=== PATIENT | male | born 1970 | race Caucasian/White ===

== ENCOUNTER → 2016-05-13 | Outpatient (CLI) | payer BC ==
--- NOTE | 2016-05-14 01:46 | REP ---
Clinical: Acute on chronic pain. Technique: AP, lateral, bilateral oblique views right foot . Findings: The osseous structures and joint spaces are intact and normal. There is no evidence for acute fracture or dislocation. Surrounding soft tissues are unremarkable. No subcutaneous emphysema or radiodense foreign body. Impression: Normal examination. No acute fracture or dislocation. Signed by Pato Manzano MD 05/14/2016 01:38 A
== END ==
LOC: M RAD 11:51
PROVIDERS: ATTEND Family Medicine
DX: M79.671 Pain in right foot (principal)

== ENCOUNTER → 2016-05-31 | Outpatient (CLI) | payer BC ==
[2016-05-31 12:21] LABS: ALBUMIN 3.7 GM/DL (3.2-5.2); ALBUMIN/GLOBULIN RATIO 1.23 (1.00-1.93); ALKALINE PHOSPHATASE 88 U/L (45-117); ALT/SGPT 36 U/L (12-78); ANION GAP 8 MEQ/L (8-16); AST/SGOT 24 U/L (15-37); BILIRUBIN,TOTAL 1.6 MG/DL (0.2-1.0); BLOOD UREA NITROGEN 15 MG/DL (7-18); CALCIUM LEVEL 8.7 MG/DL (8.5-10.1); CARBON DIOXIDE LEVEL 29 MEQ/L (21-32); CHLORIDE LEVEL 105 MEQ/L (98-107); CHOLESTEROL LEVEL 170 MG/DL (<200); GLOMERULAR FILTRATION RATE > 60.0 (>60); GLUCOSE, FASTING 89 MG/DL (70-105); POTASSIUM SERUM 4.1 MEQ/L (3.5-5.1); SODIUM LEVEL 142 MEQ/L (136-145); TOTAL PROTEIN 6.7 GM/DL (6.4-8.2); TRIGLYCERIDES LEVEL 90 MG/DL (<150)
== END ==
LOC: M LAB 10:43
PROVIDERS: ATTEND Student in an Organized Health Care Education/Training Program
DX: D86.9 Sarcoidosis, unspecified (principal); E66.9 Obesity, unspecified; Z13.220 Encounter for screening for lipoid disorders

== ENCOUNTER → 2017-04-15 | Outpatient (CLI) | payer BC ==
[2017-04-15 17:20] LABS: PSA SCREENING 0.87 NG/ML (< 4.0)
[2017-04-15 18:33] LABS: APPEARANCE, URINE CLEAR (CLEAR); BACTERIA, URINE AUTO NEGATIVE (NEGATIVE); BILIRUBIN, URINE AUTO NEGATIVE (NEGATIVE); BLOOD, URINE BLOOD NEGATIVE (NEGATIVE); COLOR, URINE YELLOW (YELLOW); GLUCOSE, URINE (UA) AUTO NEGATIVE (NEGATIVE); KETONE, URINE AUTO NEGATIVE (NEGATIVE); LEUKOCYTE ESTERASE, URINE AUTO NEGATIVE (NEGATIVE); MUCUS, URINE SMALL (NEGATIVE); NITRITE, URINE AUTO NEGATIVE (NEGATIVE); PROTEIN, URINE AUTO NEGATIVE (NEGATIVE); RBC, URINE AUTO 0 /HPF (0-3); SPECIFIC GRAVITY URINE AUTO 1.021 (1.002-1.035); SQUAMOUS EPITHELIAL CELL UR AU 0 /HPF (0-6); UROBILINOGEN, URINE AUTO 0.2 mg/dL (0.0-2.0); WBC, URINE AUTO 1 /HPF (0-3)
== END ==
LOC: M LAB 15:36
DX: N40.1 Benign prostatic hyperplasia with lower urinary tract symptoms (principal); Z12.5 Encounter for screening for malignant neoplasm of prostate
CPT/HCPCS: G0103

== ENCOUNTER → 2018-01-08 | Outpatient (REF) | payer BC ==
[2018-01-08 18:13] LABS: BASO % 0.8 % (0.0-1.0); EOS # 0.2 10^3/uL (0.0-0.50); EOS % 4.3 % (0.0-3.0); HEMATOCRIT 47.4 % (42.0-52.0); HEMOGLOBIN 14.7 g/dl (13.5-17.5); IMMATURE GRANULOCYTE % 0.4 % (0-3.0); LYMPH # 1.5 10^3/uL (1.5-4.5); LYMPH % 28.1 % (24.0-44.0); MEAN CORPUSCULAR HEMOGLOBIN 27.2 pg (27.0-33.0); MEAN CORPUSCULAR VOLUME 87.6 fl (80.0-96.0); MONO # 0.4 10^3/uL (0.0-0.8); MONO % 7.7 % (0.0-5.0); NEUTROPHILS # 3.1 10^3/uL (1.8-7.7); NEUTROPHILS % 58.7 % (36.0-66.0); PLATELET COUNT, AUTOMATED 189 10^3/uL (150-450); RED BLOOD COUNT 5.41 10^6/uL (4.30-6.10); RED CELL DISTRIBUTION WIDTH 13.2 % (11.5-14.5); WHITE BLOOD COUNT 5.3 10^3/uL (4.0-10.0)
[2018-01-08 18:33] LABS: ALBUMIN 4.1 GM/DL (3.2-5.2); ALBUMIN/GLOBULIN RATIO 1.28 (1.00-1.93); ALKALINE PHOSPHATASE 85 U/L (45-117); ALT/SGPT 29 U/L (12-78); ANION GAP 7 MEQ/L (8-16); AST/SGOT 19 U/L (7-37); BILIRUBIN,TOTAL 1.4 MG/DL (0.2-1.0); BLOOD UREA NITROGEN 9 MG/DL (7-18); CALCIUM LEVEL 9.1 MG/DL (8.5-10.1); CARBON DIOXIDE LEVEL 30 MEQ/L (21-32); CHLORIDE LEVEL 105 MEQ/L (98-107); CREATININE FOR GFR 0.99 MG/DL (0.70-1.30); FREE T4 1.26 NG/DL (0.76-1.46); GLOMERULAR FILTRATION RATE > 60.0 (>60); GLUCOSE, FASTING 80 MG/DL (70-100); POTASSIUM SERUM 4.3 MEQ/L (3.5-5.1); SODIUM LEVEL 142 MEQ/L (136-145); TOTAL PROTEIN 7.3 GM/DL (6.4-8.2)
[2018-01-08 18:52] LABS: ESTIMATED AVERAGE GLUCOSE 97 MG/DL (60-110)
== END ==
LOC: M SFHCPLAZ 15:56
DX: E66.9 Obesity, unspecified (principal); Z12.5 Encounter for screening for malignant neoplasm of prostate; Z12.11 Encounter for screening for malignant neoplasm of colon
CPT/HCPCS: 84443

== ENCOUNTER → 2018-08-11 | Outpatient (REF) | payer BC ==
[2018-08-11 13:42] LABS: CHOLESTEROL RISK RATIO 3.652 (<5)
== END ==
LOC: M SFHCPLAZ 09:33
PROVIDERS: ATTEND Physician Assistant Medical
DX: Z12.5 Encounter for screening for malignant neoplasm of prostate (principal); Z13.220 Encounter for screening for lipoid disorders
CPT/HCPCS: 36415; 80061; G0103

== ENCOUNTER → 2018-10-14 | Outpatient (REF) | payer BC | LOC: M SFHCPLAZ 11:52 | PROVIDERS: ATTEND Physician Assistant Medical | DX: L82.1 Other seborrheic keratosis (principal) ==

== ENCOUNTER 2019-10-17 15:28 | Emergency (ER) | payer BC ==
[~2019-10-17] VITALS: Ht 180.3 cm; Wt 135.9 kg
[2019-10-17 15:37] VITALS: BP 143/88
[2019-10-17] MEDS ORDERED: BOOSTRIX/ADACEL VACCINE (DIPHTH/PERTUSS/ACELL/TETANUS) 0.5ML SYR IM ONE (16:00)
== END 2019-10-17 16:18 | disposition home or self-care (01) ==
LOC: M ED 15:28 → EDBD 15:28 → M ED 16:18
DX: S00.01XA Abrasion of scalp, initial encounter (principal); W01.198A Fall on same level from slipping, tripping and stumbling with subsequent striking against other object, initial encounter; Y92.9 Unspecified place or not applicable; Y93.E5 Activity, floor mopping and cleaning; Y99.0 Civilian activity done for income or pay

== ENCOUNTER → 2019-10-18 | Outpatient (REF) | payer BC ==
[2019-10-18 11:25] LABS: BASO % 0.7 % (0.0-1.0); EOS # 0.2 10^3/uL (0.0-0.5); EOS % 4.6 % (0.0-3.0); HEMATOCRIT 46.6 % (42.0-52.0); HEMOGLOBIN 14.3 g/dl (13.5-17.5); LYMPH % 23.5 % (24.0-44.0); MEAN CORPUSCULAR HEMOGLOBIN 26.8 pg (27.0-33.0); MEAN CORPUSCULAR HGB CONC 30.7 g/dl (32.0-36.5); MEAN CORPUSCULAR VOLUME 87.4 fl (80.0-96.0); MONO # 0.4 10^3/uL (0.0-0.8); MONO % 9.5 % (0.0-5.0); NEUTROPHILS # 2.5 10^3/uL (1.5-8.5); NEUTROPHILS % 61.5 % (36.0-66.0); PLATELET COUNT, AUTOMATED 156 10^3/uL (150-450); RED BLOOD COUNT 5.33 10^6/uL (4.30-6.10); WHITE BLOOD COUNT 4.1 10^3/uL (4.0-10.0)
[2019-10-18 11:40] LABS: ALBUMIN 3.6 GM/DL (3.2-5.2); ALT/SGPT 33 U/L (12-78); BILIRUBIN,TOTAL 1.2 MG/DL (0.2-1.0); BLOOD UREA NITROGEN 15 MG/DL (7-18); CALCIUM LEVEL 8.6 MG/DL (8.5-10.1); CARBON DIOXIDE LEVEL 29 MEQ/L (21-32); CHLORIDE LEVEL 109 MEQ/L (98-107); CREATININE FOR GFR 1.03 MG/DL (0.70-1.30); FREE T4 1.23 NG/DL (0.76-1.46); GLOMERULAR FILTRATION RATE > 60.0 (>56); GLUCOSE, FASTING 87 MG/DL (70-100); LUTEINIZING HORMONE 5.4 mIU/mL (1.5-9.3); POTASSIUM SERUM 4.1 MEQ/L (3.5-5.1); PROLACTIN 6.8 NG/ML (2.1-17.7); SODIUM LEVEL 143 MEQ/L (136-145); THYROID STIMULATING HORMONE 0.535 uIU/ML (0.358-3.740); TOTAL PROTEIN 6.5 GM/DL (6.4-8.2); VITAMIN B12 LEVEL 587 PG/ML (247-911)
[2019-10-18 11:43] LABS: HEMOGLOBIN A1c 5.2 %
== END ==
LOC: M SFHCPLAZ 09:16
PROVIDERS: ATTEND Physician Assistant Medical
DX: R53.83 Other fatigue (principal); Z68.41 Body mass index [BMI] 40.0-44.9, adult

== ENCOUNTER 2019-11-13 23:47 | Emergency (ER) | payer BC ==
[2019-11-14] MEDS ORDERED: NAPROXEN 250 MG TAB As Ordered ONE (06:15)
[2019-11-14] MEDS ORDERED: NAPROXEN 250 MG TAB ONE (06:15)
== END 2019-11-14 06:20 | disposition home or self-care (01) ==
LOC: M ED 23:47
DX: M25.561 Pain in right knee (principal); M25.572 Pain in left ankle and joints of left foot

== ENCOUNTER → 2020-02-08 | Outpatient (REF) | payer BC ==
[2020-02-09 16:08] LABS: TESTOSTERONE FREE (DIRECT) 7.9 pg/mL (7.2-24.0)
== END ==
LOC: M SFHCPLAZ 10:40
PROVIDERS: ATTEND Physician Assistant Medical
DX: N52.9 Male erectile dysfunction, unspecified (principal)

== ENCOUNTER → 2020-02-16 | Outpatient (REF) | payer BC | LOC: M SFHCPLAZ 10:56 | PROVIDERS: ATTEND Physician Assistant Medical | DX: N40.1 Benign prostatic hyperplasia with lower urinary tract symptoms (principal) ==

== ENCOUNTER → 2020-02-16 | Outpatient (REF) | payer BC | LOC: M SFHCPLAZ 12:33 | PROVIDERS: ATTEND Physician Assistant Medical | DX: Z53.9 Procedure and treatment not carried out, unspecified reason (principal); N40.1 Benign prostatic hyperplasia with lower urinary tract symptoms ==

== ENCOUNTER → 2020-02-22 | Outpatient (REF) | payer BC ==
[2020-02-23 18:12] LABS: TESTOSTERONE FREE (DIRECT) 6.7 pg/mL (7.2-24.0)
== END ==
LOC: M SFHCPLAZ 08:17
PROVIDERS: ATTEND Physician Assistant Medical
DX: E29.1 Testicular hypofunction (principal)

== ENCOUNTER → 2020-07-11 | Outpatient (CLI) | payer SELFPAY | LOC: M LABSMTC 10:16 | PROVIDERS: ATTEND Pediatrics | DX: Z20.822 Contact with and (suspected) exposure to COVID-19 (principal) ==

== ENCOUNTER → 2020-09-25 | Outpatient (REF) | payer BC ==
[2020-09-25 14:11] LABS: CHOLESTEROL RISK RATIO 3.132 (<5)
[2020-09-26 19:07] LABS: TESTOSTERONE FREE (DIRECT) 12.5 pg/mL (7.2-24.0)
== END ==
LOC: M PLALAB 10:58
PROVIDERS: ATTEND Physician Assistant Medical
DX: Z13.220 Encounter for screening for lipoid disorders (principal); E29.1 Testicular hypofunction

== ENCOUNTER → 2020-12-11 | Outpatient (CLI) | payer BC ==
--- NOTE | 2020-12-13 04:28 | REP ---
INDICATION: PAIN IN LEFT ELBOW COMPARISON: None. TECHNIQUE: AP, lateral, bilateral oblique views of the left elbow. FINDINGS: No acute fracture or dislocation is appreciated. Joint spaces and surrounding soft tissues appear normal. Lateral view demonstrates normal positioning to the anterior and posterior fat pads without evidence for effusion/hemarthrosis. No subcutaneous emphysema or foreign body identified. IMPRESSION: Normal age-appropriate elbow radiographs. <Electronically signed by Pato Manzano > 12/13/20 0424
== END ==
LOC: M PLAIMG 12:18
PROVIDERS: ATTEND Physician Assistant
DX: M25.522 Pain in left elbow (principal)

== ENCOUNTER 2021-01-31 11:59 | Emergency (ER) | payer BC ==
[~2021-01-31] VITALS: Ht 180.3 cm; Wt 138.6 kg
--- OUTSIDE RECORDS SUMMARY | 2021-01-31 12:04 | CCD ---
Author Author [facility] Organization [facility] Address Unknown Phone Unavailable Care Team Providers Care Utility Repairer Name Role Phone Henny Maldonado Unavailable PROBLEMS Type Condition ICD9-CM Code [id number] Code Onset Dates Condition S tatus W/U Status Risk SNOMED Code Notes Problem Obesity, unspecified obesity severity, unspecified obe sity type E66.9 Active confirmed 343175155 Problem Sarcoidosis D86.9 Active confirmed 97337062 Problem Other obesity due to excess calories E66.09 Act gm confirmed 73164048439825 Problem Erectile dysfunction, unspecified erectile dysfunction typ e N52.9 Active confirmed 137929736 Problem DDD (degenerative disc disease), lumbar M51.36 Active confirmed 26150607 Problem Morbid (severe) obesity due to excess calories E66 .01 Active confirmed 53076420795714 Problem Colon cancer screening Z12.11 Active confirmed 048389463 Problem Seborrheic keratosis L82.1 Active confirmed 079954724 Problem Other male erectile dysfunction N52.8 Active confi rmed 164806229 Problem Hypogonadism in male E29.1 Active confirmed 89320439 Problem Enlarged prostate with lower urinary tract symptoms N40.1 Active confirmed 99251038374112 Problem Prostate cancer screening Z12.5 Active confirmed 225903842 Problem Body mass index (BMI) of 40.0-44.9 in adult Z68.41 Active confirmed 704458492 Problem Encounter for immunization Z23 Active confirmed 308666253 Problem Lipid screening Z13.220 Active confirmed 305 781437 ALLERGIES Allergen (clinical drug ingredient) Drug/Non Drug Allergy do cumented on EMR Reaction Allergy Type Onset Date Status Seasonal allergies Unknown Non Drug Allergy Active ENCOUNTERS from 1969 to 2020-12-13 Encounter Location Date Provider Diagnosis [facility] [address] [facility] [phone] [place] [address] Nov, Henny Maldonado Acute bilateral low back gina n without sciatica M54.5 ; DDD (degenerative disc disease), lumbar M51.36 and Left elbow pain M25.522 IMMUNIZATIONS Vaccine Route Administration Date Status Influenza 18 yrs & older Flublok IM Intramuscular Feb 15, 2020 Administered Pneumococcal Adult 0.5mL Pneumovax 23 IM Intramuscular Feb 19 018 Administered TDAP 0.5mL (Boostrix) IM Intramuscular Jan 16, 2017 Administe red TDAP 0.5mL (Boostrix) Unknown Jan 16, 2017 Administer ed Influenza 6mo & up Fluzone IM Intramuscular Feb 19, 2018 Admi nistered Influenza 6mo & up Fluzone IM Intramuscular Jan 16, 2017 Admi nistered Influenza 6mo & up Fluzone IM Intramuscular Feb 29, 2016 Admi nistered SOCIAL HISTORY Tobacco Use: Social History Observation Description Date Details (start date - stop date) Former Smoker Sex Assigned At : Social History Observation Description Sex Assigned At Unknown Education: Question Answer Notes Level of Education: Professional Schools/Masters/PhD Audit Question Answer Notes Total Score: 1 Interpretation: Alcohol Education Language: Question Answer Notes Languages spoken: Bulgarian Sexual Hx: Question Answer Notes Had sex in the last 12 months (vaginal, oral, or anal)? No Have you ever had an STD? Yes Other? Yes Drug and Alcohol Question Answer Notes Total Score: 0 Interpretation: No problems reported Alcohol Screening: Question Answer Notes Did you have a drink containing alcohol in the past year? No Points 0 Interpretation Negative BMI Care Goal Follow-Up Question Answer Notes Above Normal BMI Follow-Up Lifestyle education regarding t Tobacco Use: Question Answer Notes Are you a: former smoker How long has it been since you last smoked? 1-5 years REASON FOR REFERRAL from 1969 to 2020-12-13 Reason chronic low back pain; hx DD D|This is private insurance, NOT NF Diagnosis 1 Acute bilateral low back gina n without sciatica (M54.5) Referral Organization [facility] Referring Provider First Name Henny Referring Provider Last Name Joel Referring Provider Specialty Family Medicine Ref[facility] Provider [facility] Referred Provider Specialty Orthopedic Surgery Referral Priority Routine General Notes Lashay Daniel 12/11/2020 12:02:31 PM > referral faxed VITAL SIGNS Weight 300 lbs Nov, Weight-kg 136.08 kg Nov, Height 71.5 in Nov, BMI 41.25 kg/m2 Nov, Heart Rate 87 /min Nov, Respiratory Rate 18 /min Nov, Temperature 97.1 degrees Fahrenheit Nov, Oximetry 98% Nov, Blood pressure systolic 120 mm Hg Nov, Blood pressure diastolic 80 mm Hg Nov, MEDICATIONS Medication SIG (Take, Route, Frequency, Duration) Notes Start Da te End Date Status Meloxicam 7.5 MG 1 tablet Orally bid for 30 day(s) Not-Taking tiZANidine HCl 2 MG 1 tablet as needed Orally Three times a day for 30 day(s) Active Testosterone 12.5 MG/ACT (1%) 4 pumps to skin in the m orning to shoulder, upper arms or abdomen Transdermal Once a day for 30 Days Nov, Active Gabapentin 100 MG 1 capsule Orally Three times a day for 30 day(s) Active PROCEDURES No Information RESULTS No Results REASON FOR VISIT No Information MEDICAL (GENERAL) HISTORY Type Description Date Medical History Degenerative Disc Disease, Lumbar Medical History 10-year ASCVD risk: 2.1% (calculated on 01/16/17) Medical History Prostate hypertrophy Medical History ED Medical History Sarcoidosis-steroid responsi ve last flareup & steroid use in [address], [address] Cates 08/2012, pfts thenFEV1 2.61,63%, FEV1/FVC 973% Surgical History cholecystectomy 2004 Surgical History Lymph node biopsies 2004 Surgical History Lung biopsis for sarcoidosis 2004 Surgical History wisdom teeth extracted age 16 Surgical History S/p Tonsillectomy Hospitalization History hospitalized for surgeries, Sarcoido sis Goals Section No Information Health Concerns No Information MEDICAL EQUIPMENT No Information MENTAL STATUS No Information FUNCTIONAL STATUS No Information ASSESSMENTS Encounter Date Diagnosis Assessment Notes Treatment Notes Treatm ent Clinical Notes Nov, Acute bilateral low back pain without sciatica ( ICD-10 - M54.5) Will refill Tizanidine and Gabapentin. Warned pt about drowsiness with Tizanidine. Avoid driving, operating heavy machinery or drinking alcohol while on this medication. Will not refill Meloxicam, as pt state that this was not helpful in the past. May take Ibuprofen OTC for inflammation. Will refer to SOS as discussed. Pt to avoid heavy lifting, pushing or pulling. Pt agrees with plan Nov, DDD (degenerative disc disease), lumbar (ICD-10 - M51.36) Nov, Left elbow pain (ICD-10 - M25.522) Will obtain xrays of the left elbow and will call pt with results. Pt agrees with plan Nov, Other Total time bogdan ng for the patient on the day of the encounter was 20 min PLAN OF TREATMENT Medication Medication Name Sig Start Date Stop Date Gabapentin 100 MG 1 capsule Orally Three times a day for 30 day( s) tiZANidine HCl 2 MG 1 tablet as needed Orally Three times a day for 30 day(s) Treatment Notes Assessment Notes Clinical Notes Acute bilateral low back pain without sciatica Will refill Tizanidine and Gabapentin. Warned pt about drowsiness with Tizanidine. Avoid driving, operating heavy machinery or drinking alcohol while on this medication. Will not refill Meloxicam, as pt state that this was not helpful in the past. May take Ibuprofen OTC for inflammation. Will refer to SOS as discussed. Pt to avoid heavy lifting, pushing or pulling. Pt agrees with plan Left elbow pain Will obtain xrays of the left elbow and will call pt with results. Pt agrees with plan Treatment Notes Test Name Order Date PLZ ELBOW COMPLETE 2020-12-11 Referrals Referral Date Details chronic low back pain; hx DD D|This is private insurance, NOT NF, [facility] Next Appt Details Provider Name:Destiny Gómez, 2021-02-07 03:15:00 PM, [address] [facility], , [place], [address], Insurance Providers Payer Name Payer Address Payer Phone Insured Name Patient Relati onship to Insured Coverage Start Date Coverage End Date MALKA BRUCE PPO [phone] [facility] Expandly [facility] [place] [address] ROSIE RODRIGUEZ self"
--- OUTSIDE RECORDS SUMMARY | 2021-01-31 12:04 | CCD ---
Author Author [facility] Organization [facility] Address Unknown Phone Unavailable Care Team Providers Care Reflesher Name Role Phone Brandi Singh Unavailable PROBLEMS Type Condition ICD9-CM Code [id number] Code Onset Dates Condition S tatus W/U Status Risk SNOMED Code Notes Problem Obesity, unspecified obesity severity, unspecified obe sity type E66.9 Active confirmed 481954761 Problem Sarcoidosis D86.9 Active confirmed 34606584 Problem Other obesity due to excess calories E66.09 Act gm confirmed 48577470654261 Problem Erectile dysfunction, unspecified erectile dysfunction typ e N52.9 Active confirmed 223792313 Problem DDD (degenerative disc disease), lumbar M51.36 Active confirmed 52736724 Problem Morbid (severe) obesity due to excess calories E66 .01 Active confirmed 72747141379249 Problem Colon cancer screening Z12.11 Active confirmed 251238098 Problem Seborrheic keratosis L82.1 Active confirmed 487738030 Problem Other male erectile dysfunction N52.8 Active confi rmed 316105006 Problem Hypogonadism in male E29.1 Active confirmed 43649989 Problem Enlarged prostate with lower urinary tract symptoms N40.1 Active confirmed 84967601890356 Problem Prostate cancer screening Z12.5 Active confirmed 688582156 Problem Body mass index (BMI) of 40.0-44.9 in adult Z68.41 Active confirmed 777275934 Problem Encounter for immunization Z23 Active confirmed 458571106 Problem Lipid screening Z13.220 Active confirmed 305 466162 ALLERGIES Allergen (clinical drug ingredient) Drug/Non Drug Allergy do cumented on EMR Reaction Allergy Type Onset Date Status Seasonal allergies Unknown Non Drug Allergy Active ENCOUNTERS from 1969 to 2020-11-09 Encounter Location Date Provider Diagnosis [facility] [address] [facility] [phone] [place] [address] Oct, Brandi Singh IMMUNIZATIONS Vaccine Route Administration Date Status Influenza [...] Education Language: Question Answer Notes Languages spoken: Kenyan Sexual Hx: Question Answer Notes Had sex [...] last smoked? 1-5 years REASON FOR REFERRAL No Information VITAL SIGNS No information MEDICATIONS Medication SIG (Take, Route, Frequency, Duration) Notes Start Da te End Date Status Testosterone 12.5 MG/ACT (1%) 4 pumps to skin in the m orning to shoulder, upper arms or abdomen Transdermal Once a day for 30 Days Feb, Active Testosterone 10 MG/ACT (2%) 1 pump to skin in the morn ing to the thighs Transdermal Once a day for 90 day(s) Feb, Active Gabapentin 100 MG 1 capsule Orally Three times a day for 30 day(s) Active Meloxicam 7.5 MG 1 tablet Orally bid for 30 day(s) Active tiZANidine HCl 2 MG 1 tablet as needed Orally Three times a day for 30 day(s) Active PROCEDURES No Information RESULTS No Results REASON FOR VISIT will get new provider MEDICAL (GENERAL) HISTORY Type Description Date Medical [...] No Information FUNCTIONAL STATUS No Information ASSESSMENTS No Information PLAN OF TREATMENT Medication Medication Name Sig Start Date Stop Date Testosterone 12.5 MG/ACT (1%) 4 pumps to skin in the m orning to shoulder, upper arms or abdomen Transdermal Once a day for 30 Days Feb, Meloxicam 7.5 MG 1 tablet Orally bid for 30 day(s) tiZANidine HCl 2 MG 1 tablet as needed Orally Three times a day for 30 day(s) Gabapentin 100 MG 1 capsule Orally Three times a day for 30 day( s) Testosterone 10 MG/ACT (2%) 1 pump to skin in the morn ing to the thighs Transdermal Once a day for 90 day(s) Feb, Next Appt Details Provider Name:Destiny Gómez, 2021-02-07 03:15:00 PM, [address] [place] [address], , [place], [place], [facility], Insurance Providers Payer Name Payer Address Payer Phone Insured Name Patient Relati onship to Insured Coverage Start Date Coverage End Date SHIRLEY BRUCE [facility] [address] [facility] [address] Apolonia Rodriguez
--- OUTSIDE RECORDS SUMMARY | 2021-01-31 12:04 | CCD ---
Author Author [facility] Organization [facility] Address Unknown Phone Unavailable Care Team Providers Care Structural Worker Name Role Phone Brandi Singh Unavailable PROBLEMS Type Condition ICD9-CM Code [id number] Code Onset Dates Condition S tatus W/U Status Risk SNOMED Code Notes Problem Obesity, unspecified obesity severity, unspecified obe sity type E66.9 Active confirmed 868128159 Problem Sarcoidosis D86.9 Active confirmed 54819385 Problem Other obesity due to excess calories E66.09 Act gm confirmed 70193857545886 Problem Erectile dysfunction, unspecified erectile dysfunction typ e N52.9 Active confirmed 263301876 Problem DDD (degenerative disc disease), lumbar M51.36 Active confirmed 04258488 Problem Morbid (severe) obesity due to excess calories E66 .01 Active confirmed 61077007285586 Problem Colon cancer screening Z12.11 Active confirmed 472030246 Problem Seborrheic keratosis L82.1 Active confirmed 360412190 Problem Other male erectile dysfunction N52.8 Active confi rmed 991888266 Problem Hypogonadism in male E29.1 Active confirmed 74964574 Problem Enlarged prostate with lower urinary tract symptoms N40.1 Active confirmed 56617314496346 Problem Prostate cancer screening Z12.5 Active confirmed 148776093 Problem Body mass index (BMI) of 40.0-44.9 in adult Z68.41 Active confirmed 073270090 Problem Encounter for immunization Z23 Active confirmed 257289656 Problem Lipid screening Z13.220 Active confirmed 305 695453 ALLERGIES Allergen (clinical drug ingredient) Drug/Non Drug Allergy do cumented on EMR Reaction Allergy Type Onset Date Status Seasonal allergies Unknown Non Drug Allergy Active ENCOUNTERS from 1969 to 2020-11-16 Encounter Location Date Provider Diagnosis [facility] [address] [facility] [phone] [place] [address] Nov, Brandi Singh Hypogonadism in male E29.1 IMMUNIZATIONS Vaccine Route Administration Date Status Influenza [...] Education Language: Question Answer Notes Languages spoken: Polish Sexual Hx: Question Answer Notes Had sex [...] Start Da te End Date Status Testosterone 10 MG/ACT (2%) 1 pump to skin in the morn ing to the thighs Transdermal Once a day for 30 days Nov, Active tiZANidine HCl 2 MG 1 tablet as needed Orally Three times a day for 30 day(s) Active Meloxicam 7.5 MG 1 tablet Orally bid for 30 day(s) Active Testosterone 12.5 MG/ACT (1%) 4 pumps to skin in the m orning to shoulder, upper arms or abdomen Transdermal Once a day for 30 Days Nov, Active Gabapentin 100 MG 1 capsule Orally Three times a day for 30 day(s) Active PROCEDURES No Information RESULTS No Results REASON FOR VISIT Testosterone 12.5 MG/ACT (1%) Gel MEDICAL (GENERAL) HISTORY Type Description Date Medical [...] Treatment Notes Treatm ent Clinical Notes Nov, Hypogonadism in male (ICD-10 - E29.1) PLAN OF TREATMENT Medication Medication Name Sig Start Date Stop Date Testosterone 10 MG/ACT (2%) 1 pump to skin in the morn ing to the thighs Transdermal Once a day for 30 days Nov, Testosterone 12.5 MG/ACT (1%) 4 pumps to skin in the m orning to shoulder, upper arms or abdomen Transdermal Once a day for 30 Days Nov, Gabapentin 100 MG 1 capsule Orally Three times a day for 30 day( s) Meloxicam 7.5 MG 1 tablet Orally bid for 30 day(s) tiZANidine HCl 2 MG 1 tablet as needed Orally Three times a day for 30 day(s) Next Appt Details Provider Name:Destiny Gómez, 2021-02-07 03:15:00 PM, [address] [place] [address], , [place], [address], Insurance Providers Payer Name Payer Address Payer Phone Insured Name Patient Relati onship to Insured Coverage Start Date Coverage End Date [facility] [place] [address] [address] [place] [address] Apolonia Rodriguez
--- OUTSIDE RECORDS SUMMARY | 2021-01-31 12:04 | CCD ---
Author Author [facility] Organization [facility] Address Unknown Phone Unavailable Care Team Providers Care Journeyman Level Acoustic Analyst Name Role Phone Brandi Singh Unavailable PROBLEMS Type Condition ICD9-CM Code [id number] Code Onset Dates Condition S tatus W/U Status Risk SNOMED Code Notes Problem Obesity, unspecified obesity severity, unspecified obe sity type E66.9 Active confirmed 020435971 Problem Sarcoidosis D86.9 Active confirmed 65673837 Problem Other obesity due to excess calories E66.09 Act gm confirmed 82168987070097 Problem Erectile dysfunction, unspecified erectile dysfunction typ e N52.9 Active confirmed 360659651 Problem DDD (degenerative disc disease), lumbar M51.36 Active confirmed 69577710 Problem Morbid (severe) obesity due to excess calories E66 .01 Active confirmed 59381236142156 Problem Colon cancer screening Z12.11 Active confirmed 315108677 Problem Seborrheic keratosis L82.1 Active confirmed 447006581 Problem Other male erectile dysfunction N52.8 Active confi rmed 956008726 Problem Hypogonadism in male E29.1 Active confirmed 49757378 Problem Enlarged prostate with lower urinary tract symptoms N40.1 Active confirmed 60961582146084 Problem Prostate cancer screening Z12.5 Active confirmed 979216024 Problem Body mass index (BMI) of 40.0-44.9 in adult Z68.41 Active confirmed 052936160 Problem Encounter for immunization Z23 Active confirmed 928376235 Problem Lipid screening Z13.220 Active confirmed 305 129313 ALLERGIES Allergen (clinical drug ingredient) Drug/Non Drug Allergy do cumented on EMR Reaction Allergy Type Onset Date Status Seasonal allergies Unknown Non Drug Allergy Active ENCOUNTERS from 1970 to 2020-11-17 Encounter Location Date Provider Diagnosis [facility] [address] [facility] [phone] [place] [address] Nov, Brandi Singh Hypogonadism in male E29.1 [...] Education Language: Question Answer Notes Languages spoken: Mosotho Sexual Hx: Question Answer Notes Had sex [...] Notes Start Da te End Date Status Gabapentin 100 MG 1 capsule Orally Three times a day for 30 day(s) Active tiZANidine HCl 2 MG 1 tablet as needed Orally Three times a day for 30 day(s) Active Meloxicam 7.5 MG 1 tablet Orally bid for 30 day(s) Active Testosterone 12.5 MG/ACT (1%) 4 pumps to skin in the m orning to shoulder, upper arms or abdomen Transdermal Once a day for 30 Days Nov, Active PROCEDURES No Information RESULTS No Results REASON FOR VISIT script failed please resend MEDICAL (GENERAL) HISTORY Type Description Date Medical [...] 1 tablet Orally bid for 30 day(s) Testosterone 12.5 MG/ACT (1%) 4 pumps to skin in the m orning to shoulder, upper arms or abdomen Transdermal Once a day for 30 Days Nov, tiZANidine HCl 2 MG 1 tablet as needed Orally Three times a day for 30 day(s) Next Appt Details Provider Name:Destiny Gómez, 2021-02-07 03:15:00 PM, [address] [place] [address], , [place], [place], [facility], Insurance Providers Payer Name Payer Address Payer Phone Insured Name Patient Relati onship to Insured Coverage Start Date Coverage End Date SHIRLEY BRUCE [place] [address] [address] [place] [address] [phone] Apolonia Rodriguez
--- OUTSIDE RECORDS SUMMARY | 2021-01-31 12:04 | CCD ---
Author Author [facility] Organization [facility] Address Unknown Phone Unavailable Care Team Providers Care Rivet Machine Operator Name Role Phone Luma Lo Unavailable PROBLEMS Type Condition ICD9-CM Code [id number] Code Onset Dates Condition S tatus W/U Status Risk SNOMED Code Notes Problem Sarcoidosis D86.9 Active confirmed 44101432 Problem Erectile dysfunction, unspecified erectile dysfunction typ e N52.9 Active confirmed 902283355 Problem Obesity, unspecified obesity severity, unspecified obe sity type E66.9 Active confirmed 734406012 Problem Enlarged prostate with lower urinary tract symptoms N40.1 Active confirmed 09388987973532 Problem Other obesity due to excess calories E66.09 Act gm confirmed 37115484661217 Problem Morbid (severe) obesity due to excess calories E66 .01 Active confirmed 05087652716074 Problem Colon cancer screening Z12.11 Active confirmed 556788044 Problem Prostate cancer screening Z12.5 Active confirmed 929478827 Problem Hypogonadism in male E29.1 Active confirmed 72856157 Problem DDD (degenerative disc disease), lumbar M51.36 Active confirmed 33691187 Problem Condyloma acuminata A63.0 Active confirmed 237320465 Problem Other male erectile dysfunction N52.8 Active confi rmed 384923635 Problem Body mass index (BMI) of 40.0-44.9 in adult Z68.41 Active confirmed 221793612 Problem Encounter for immunization Z23 Active confirmed 033823999 Problem Lipid screening Z13.220 Active confirmed 305 560462 Problem Seborrheic keratosis L82.1 Active confirmed 121343301 ALLERGIES Allergen (clinical drug ingredient) Drug/Non Drug Allergy do cumented on EMR Reaction Allergy Type Onset Date Status Pollen Pollen Unknown Drug Allergy Active ENCOUNTERS from 1969 to 2021-01-29 Encounter Location Date Provider Diagnosis [facility] D[facility]atology [address] [phone] [place] [address] Jan, Luma Lo Inflamed skin tag L91.8 ; Sk in irritation R23.8 and Condyloma acuminata A63.0 IMMUNIZATIONS Vaccine Route Administration Date Status Influenza [...] Education Language: Question Answer Notes Languages spoken: Uzbek Sexual Hx: Question Answer Notes Had sex [...] REASON FOR REFERRAL No Information VITAL SIGNS Weight 305.8 lbs Jan, Weight-kg 138.71 kg Jan, Height 71.5 in Jan, BMI 42.05 kg/m2 Jan, Blood pressure systolic 124 mm Hg Jan, Blood pressure diastolic 72 mm Hg Jan, MEDICATIONS Medication SIG (Take, Route, Frequency, Duration) Notes Start Da te End Date Status Gabapentin 100 MG 1 capsule Orally Three times a day for 30 day(s) Not-Taking tiZANidine HCl 2 MG 1 tablet as needed Orally Three times a day for 30 day(s) Not-Taking Meloxicam 7.5 MG 1 tablet Orally bid for 30 day(s) Not-Taking Testosterone 12.5 MG/ACT (1%) 4 pumps to skin in the m orning to shoulder, upper arms or abdomen Transdermal Once a day for 30 days Nov, Active PROCEDURES from 1969 to 2021-01-29 Procedure Date Ordered Result Body Site Med: Derm 1% Lidocaine with Epinephrine Injection Intr adermally to marked areas 2021-01-25 N/A RESULTS No Results REASON FOR VISIT Skin Tags-L axilla, Right treated [facility] MEDICAL (GENERAL) HISTORY Type Description Date Medical [...] Notes Treatment Notes Treatm ent Clinical Notes Jan, Inflamed skin tag (ICD-10 - L91.8) After recieving informed consent, the patient is placed in a recumbant position. The lesions are identified on the lesion documentation form and cleansed with alcohol. The lesions are anesthitized with 1%llidocaine with epinephrine and cauterized with the hyfrecator on low setting. . The patient tolerated the procedure well and wound care instructions are given. Jan, Skin irritation (ICD-10 - R23.8) Jan, Condyloma acuminata (ICD-10 - A63.0) Cryotherapy x [1 ] number of sites. [place] protocol was followed in compliance with [facility] standards. Patient was counseled regarding the indication for treatment (precancerous state for actinic keratosis or cosmetic reasons if done for seborrheic keratoses, acrochordons or warts) as well as, the method and expected results to include compromise of the skin barrier, bleeding, scarring/white area, redness at site, lesion recurrence, and pain. Patient was consented to the risks and benefits of the procedure and gave informed consent. Lesion(s) with locations as indicated in the physical examination were treated. Lesion(s) were treated with 2 cycles of liquid nitrogen with a thaw time of at least ten seconds. Therapy was applied in a pulsed fashion to minimize collateral tissue injury. Patient was instructed to use Vaseline ointment to the area(s) until healed. Patient tolerated the procedure well and left in stable condition. Pain before and after the procedure were assessed to not be significantly different than baseline. PLAN OF TREATMENT Medication Medication Name Sig Start Date Stop Date Testosterone 12.5 MG/ACT (1%) 4 pumps to skin in the m orning to shoulder, upper arms or abdomen Transdermal Once a day for 30 days Nov, Treatment Notes Assessment Notes Clinical Notes Inflamed skin tag After recieving info rmed consent, the patient is placed in a recumbant position. The lesions are identified on the lesion documentation form and cleansed with alcohol. The lesions are anesthitized with 1%llidocaine with epinephrine and cauterized with the hyfrecator on low setting. . The patient tolerated the procedure well and wound care instructions are given. Condyloma acuminata Cryotherapy x [1 ] n umber of sites. [place] protocol was followed in compliance with [facility] standards. Patient was counseled regarding the indication for treatment (precancerous state for actinic keratosis or cosmetic reasons if done for seborrheic keratoses, acrochordons or warts) as well as, the method and expected results to include compromise of the skin barrier, bleeding, scarring/white area, redness at site, lesion recurrence, and pain. Patient was consented to the risks and benefits of the procedure and gave informed consent. Lesion(s) with locations as indicated in the physical examination were treated. Lesion(s) were treated with 2 cycles of liquid nitrogen with a thaw time of at least ten seconds. Therapy was applied in a pulsed fashion to minimize collateral tissue injury. Patient was instructed to use Vaseline ointment to the area(s) until healed. Patient tolerated the procedure well and left in stable condition. Pain before and after the procedure were assessed to not be significantly different than baseline. Next Appt Details 3 Weeks Reason:wart f/u Provider Name:Luma Ritter Aliyashantanu, 07:30:00 AM, [address] [place] [address], , [place], [place], [facility], Follow Up:3 Weekswart f/u Insurance Providers Payer Name Payer Address Payer Phone Insured Name Patient Relati onship to Insured Coverage Start Date Coverage End Date [facility] [phone] [facility] [employer] [facility] CLARISSA BECKETT [facility] [address] ROSIE RODRIGUEZ self
--- OUTSIDE RECORDS SUMMARY | 2021-01-31 12:04 | CCD ---
Author Author [facility] Organization [facility] Address Unknown Phone Unavailable Care Team Providers Care Site Safety Coordinator Name Role Phone Brandi Singh Unavailable PROBLEMS Type Condition ICD9-CM Code QKH71-SZ Code Onset Dates Condition S tatus W/U Status Risk SNOMED Code Notes Problem Obesity, unspecified obesity severity, unspecified obe sity type E66.9 Active confirmed 092963093 Problem Sarcoidosis D86.9 Active confirmed 58645821 Problem Other obesity due to excess calories E66.09 Act gm confirmed 24698030374690 Problem Erectile dysfunction, unspecified erectile dysfunction typ e N52.9 Active confirmed 666669874 Problem DDD (degenerative disc disease), lumbar M51.36 Active confirmed 63395999 Problem Morbid (severe) obesity due to excess calories E66 .01 Active confirmed 06354143532057 Problem Colon cancer screening Z12.11 Active confirmed 132484874 Problem Seborrheic keratosis L82.1 Active confirmed 665391705 Problem Other male erectile dysfunction N52.8 Active confi rmed 639059702 Problem Hypogonadism in male E29.1 Active confirmed 15996957 Problem Enlarged prostate with lower urinary tract symptoms N40.1 Active confirmed 34687848079502 Problem Prostate cancer screening Z12.5 Active confirmed 201866646 Problem Body mass index (BMI) of 40.0-44.9 in adult Z68.41 Active confirmed 390182162 Problem Encounter for immunization Z23 Active confirmed 864417914 Problem Lipid screening Z13.220 Active confirmed 305 746699 ALLERGIES Allergen (clinical drug ingredient) Drug/Non Drug Allergy do cumented on EMR Reaction Allergy Type Onset Date Status Seasonal allergies Unknown Non Drug Allergy Active ENCOUNTERS from 1969 to 2020-11-17 Encounter Location Date Provider Diagnosis [facility] [address] [facility] [phone] [place] [address] Nov, Brandi Singh Hypogonadism in male E29.1 [...] Education Language: Question Answer Notes Languages spoken: Thai Sexual Hx: Question Answer Notes Had sex [...] Information RESULTS No Results REASON FOR VISIT testosterone MEDICAL (GENERAL) HISTORY Type Description Date Medical [...] Details Provider Name:Destiny Gómez, 2021-02-07 03:15:00 PM, [address] [place] [address], , [place], [place], [facility][note 2], Insurance Providers Payer Name Payer Address Payer Phone Insured Name Patient Relati onship to Insured Coverage Start Date Coverage End Date [place] [address] [address] [place] [address] Apolonia Rodriguez
--- OUTSIDE RECORDS SUMMARY | 2021-01-31 12:04 | CCD ---
Author Author [facility] Organization [facility] Address Unknown Phone Unavailable Care Team Providers Care Amf Mechanic Name Role Phone Destiny Gómez Unavailable PROBLEMS Type Condition ICD9-CM Code THS10-OD Code Onset Dates Condition S tatus W/U Status Risk SNOMED Code Notes Problem Sarcoidosis D86.9 Active confirmed 01840981 Problem Erectile dysfunction, unspecified erectile dysfunction typ e N52.9 Active confirmed 348157024 Problem Obesity, unspecified obesity severity, unspecified obe sity type E66.9 Active confirmed 927752253 Problem Enlarged prostate with lower urinary tract symptoms N40.1 Active confirmed 74978871705688 Problem Other obesity due to excess calories E66.09 Act gm confirmed 24906327072167 Problem Morbid (severe) obesity due to excess calories E66 .01 Active confirmed 77794170077819 Problem Colon cancer screening Z12.11 Active confirmed 334315644 Problem Prostate cancer screening Z12.5 Active confirmed 303940067 Problem Hypogonadism in male E29.1 Active confirmed 77754481 Problem DDD (degenerative disc disease), lumbar M51.36 Active confirmed 12037845 Problem Condyloma acuminata A63.0 Active confirmed 587511569 Problem Other male erectile dysfunction N52.8 Active confi rmed 033696577 Problem Body mass index (BMI) of 40.0-44.9 in adult Z68.41 Active confirmed 794801475 Problem Encounter for immunization Z23 Active confirmed 645259163 Problem Lipid screening Z13.220 Active confirmed 305 026498 Problem Seborrheic keratosis L82.1 Active confirmed 130832465 ALLERGIES Allergen (clinical drug ingredient) Drug/Non Drug Allergy do cumented on EMR Reaction Allergy Type Onset Date Status Seasonal allergies Unknown Non Drug Allergy Active ENCOUNTERS from 1969 to 2021-01-04 Encounter Location Date Provider Diagnosis [facility] Dermatology [address] [facility] [phone] [place] [address] Dec, Destiny Gómez Inflamed skin tag L91.8 ; Sk in [...] Education Language: Question Answer Notes Languages spoken: Khmer Sexual Hx: Question Answer Notes Had sex [...] FOR REFERRAL No Information VITAL SIGNS Weight 302 lbs Dec, Weight-kg 136.99 kg Dec, Height 71.5 in Dec, BMI 41.53 kg/m2 Dec, Blood pressure systolic 126 mm Hg Dec, Blood pressure diastolic 74 mm Hg Dec, MEDICATIONS Medication SIG (Take, Route, Frequency, Duration) [...] a day for 30 Days Nov, Active tiZANidine HCl 2 MG 1 tablet as needed Orally Three times a day for 30 day(s) Not-Taking PROCEDURES from 1969 to 2021-01-04 Procedure Date Ordered Result Body Site Med: Derm 1% Lidocaine with Epinephrine Injection Intr adermally to marked areas 2021-01-03 N/A RESULTS No Results REASON FOR VISIT skin tag removal and wart MEDICAL (GENERAL) HISTORY Type Description Date Medical [...] Notes Treatment Notes Treatm ent Clinical Notes Dec, Inflamed skin tag (ICD-10 - L91.8) Right axilla treated today, will do left axilla next After recieving informed consent, the patient is placed in a recumbant position. The lesions are identified on the lesion documentation form and cleansed with alcohol. The lesions are anesthitized with 1%llidocaine with epinephrine and cauterized with the hyfrecator on low setting. . The patient tolerated the procedure well and wound care instructions are given. Dec, Skin irritation (ICD-10 - R23.8) Dec, Condyloma acuminata (ICD-10 - A63.0) T/C shave excision if no improvement (patient reports having had this done with a previous bar and filler assembler in other locations on penis) Cryotherapy x [1 ] number of sites. [place] protocol was followed in compliance with [facility] standards. Patient was counseled regarding [...] significantly different than baseline. PLAN OF TREATMENT Treatment Notes Assessment Notes Clinical Notes Inflamed skin tag Right axilla treated today, will do left axilla next After recieving informed consent, the patient is placed in a recumbant position. The lesions are identified on the lesion documentation form and cleansed with alcohol. The lesions are anesthitized with 1%llidocaine with epinephrine and cauterized with the hyfrecator on low setting. . The patient tolerated the procedure well and wound care instructions are given. Condyloma acuminata T/C shave excision if no imp rovement (patient reports having had this done with a previous bar and filler assembler in other locations on penis) Cryotherapy x [1 ] number of sites. [place] protocol was followed in compliance with [facility] standards. Patient was counseled regarding [...] significantly different than baseline. Next Appt Details Provider Name:Luma Lo, 10- 10:30:00 AM, [address] [place] [address], , [place], [place], [facility], Insurance Providers Payer Name Payer Address Payer Phone Insured Name Patient Relati onship to Insured Coverage Start Date Coverage End Date BCBS JOANNA BRUCE PPO [phone] [facility] Premium Store [facility] CLARISSA [place] [address] ROSIE RODRIGUEZ self
--- OUTSIDE RECORDS SUMMARY | 2021-01-31 12:04 | CCD ---
Author Author [facility] Organization [facility] Address Unknown Phone Unavailable Care Team Providers Care Turn Operator Name Role Phone Brandi Singh Unavailable PROBLEMS Type Condition ICD9-CM Code AAP34-AL Code Onset Dates Condition S tatus W/U Status Risk SNOMED Code Notes Problem Obesity, unspecified obesity severity, unspecified obe sity type E66.9 Active confirmed 389565881 Problem Sarcoidosis D86.9 Active confirmed 69530783 Problem Other obesity due to excess calories E66.09 Act gm confirmed 90756080306716 Problem Erectile dysfunction, unspecified erectile dysfunction typ e N52.9 Active confirmed 175476449 Problem DDD (degenerative disc disease), lumbar M51.36 Active confirmed 65205930 Problem Morbid (severe) obesity due to excess calories E66 .01 Active confirmed 00765290016851 Problem Colon cancer screening Z12.11 Active confirmed 380447335 Problem Seborrheic keratosis L82.1 Active confirmed 116118961 Problem Other male erectile dysfunction N52.8 Active confi rmed 587532147 Problem Hypogonadism in male E29.1 Active confirmed 62068362 Problem Enlarged prostate with lower urinary tract symptoms N40.1 Active confirmed 50495347496054 Problem Prostate cancer screening Z12.5 Active confirmed 330111666 Problem Body mass index (BMI) of 40.0-44.9 in adult Z68.41 Active confirmed 743035850 Problem Encounter for immunization Z23 Active confirmed 996024300 Problem Lipid screening Z13.220 Active confirmed 305 982062 ALLERGIES Allergen (clinical drug ingredient) Drug/Non Drug Allergy do cumented on EMR Reaction Allergy Type Onset Date Status Seasonal allergies Unknown Non Drug Allergy Active ENCOUNTERS from 1970 to 2020-11-03 Encounter Location Date Provider Diagnosis [facility] [address] [facility] [phone] [place] [address] Sep, Brandi Singh IMMUNIZATIONS Vaccine Route Administration Date [...] Education Language: Question Answer Notes Languages spoken: Citizen [place] Sexual Hx: Question Answer Notes Had sex [...] Information RESULTS No Results REASON FOR VISIT needs appt MEDICAL (GENERAL) HISTORY Type Description Date Medical [...] Details Provider Name:Destiny Gómez, 2021-02-07 03:15:00 PM, [address] [place] [address], , [place], [place], [facility], Insurance Providers Payer Name Payer Address Payer Phone Insured Name Patient Relati onship to Insured Coverage Start Date Coverage End Date [place] [address] [address] [facility] [address] Apolonia Rodriguez
--- OUTSIDE RECORDS SUMMARY | 2021-01-31 12:04 | CCD ---
Author Author [facility] Organization [facility] Address Unknown Phone Unavailable Care Team Providers Care Fire Sprinkler Inspector Name Role Phone Brandi Singh Unavailable PROBLEMS Type Condition ICD9-CM Code JLS15-CA Code Onset Dates Condition S tatus W/U Status Risk SNOMED Code Notes Problem Obesity, unspecified obesity severity, unspecified obe sity type E66.9 Active confirmed 025618450 Problem Sarcoidosis D86.9 Active confirmed 03756900 Problem Other obesity due to excess calories E66.09 Act gm confirmed 70268634857155 Problem Erectile dysfunction, unspecified erectile dysfunction typ e N52.9 Active confirmed 872066254 Problem DDD (degenerative disc disease), lumbar M51.36 Active confirmed 49465483 Problem Morbid (severe) obesity due to excess calories E66 .01 Active confirmed 25686542599169 Problem Colon cancer screening Z12.11 Active confirmed 351648289 Problem Seborrheic keratosis L82.1 Active confirmed 191775385 Problem Other male erectile dysfunction N52.8 Active confi rmed 288859684 Problem Hypogonadism in male E29.1 Active confirmed 82290065 Problem Enlarged prostate with lower urinary tract symptoms N40.1 Active confirmed 91677338925833 Problem Prostate cancer screening Z12.5 Active confirmed 186475408 Problem Body mass index (BMI) of 40.0-44.9 in adult Z68.41 Active confirmed 230552476 Problem Encounter for immunization Z23 Active confirmed 053816453 Problem Lipid screening Z13.220 Active confirmed 305 129351 ALLERGIES Allergen (clinical drug ingredient) Drug/Non Drug Allergy do cumented on EMR Reaction Allergy Type Onset Date Status Seasonal allergies Unknown Non Drug Allergy Active ENCOUNTERS from 1970 to 2020-11-16 Encounter Location Date Provider Diagnosis [facility] [address] [facility] [phone] [place] [address] Nov, Brandi Singh Hypogonadism in male E29.1 [...] Education Language: Question Answer Notes Languages spoken: Marshallese Sexual Hx: Question Answer Notes Had sex [...] Provider Name:Destiny Gómez, 2021-02-07 03:15:00 PM, [address] [facility], , [place], [place], [facility], Insurance Providers Payer Name Payer Address Payer Phone Insured Name Patient Relati onship to Insured Coverage Start Date Coverage End Date [place] [address] [address] [place] [phone] Apolonia Rodriguez
--- OUTSIDE RECORDS SUMMARY | 2021-01-31 12:04 | CCD ---
Author Author [facility] Organization [facility] Address Unknown Phone Unavailable Care Team Providers Care Batch Trucker Name Role Phone Brandi Singh Unavailable PROBLEMS Type Condition ICD9-CM Code XOQ59-WU Code Onset Dates Condition S tatus W/U Status Risk SNOMED Code Notes Problem Obesity, unspecified obesity severity, unspecified obe sity type E66.9 Active confirmed 742746473 Problem Sarcoidosis D86.9 Active confirmed 63934288 Problem Other obesity due to excess calories E66.09 Act gm confirmed 24739252139930 Problem Erectile dysfunction, unspecified erectile dysfunction typ e N52.9 Active confirmed 685775600 Problem DDD (degenerative disc disease), lumbar M51.36 Active confirmed 76944810 Problem Morbid (severe) obesity due to excess calories E66 .01 Active confirmed 18737257995238 Problem Colon cancer screening Z12.11 Active confirmed 582835967 Problem Seborrheic keratosis L82.1 Active confirmed 178788877 Problem Other male erectile dysfunction N52.8 Active confi rmed 956901107 Problem Hypogonadism in male E29.1 Active confirmed 46973415 Problem Enlarged prostate with lower urinary tract symptoms N40.1 Active confirmed 90744833400326 Problem Prostate cancer screening Z12.5 Active confirmed 248454014 Problem Body mass index (BMI) of 40.0-44.9 in adult Z68.41 Active confirmed 115194146 Problem Encounter for immunization Z23 Active confirmed 703372437 Problem Lipid screening Z13.220 Active confirmed 305 320009 ALLERGIES Allergen (clinical drug ingredient) Drug/Non Drug Allergy do cumented on EMR Reaction Allergy Type Onset Date Status Seasonal allergies Unknown Non Drug Allergy Active ENCOUNTERS from 1970 to 2020-12-14 Encounter Location Date Provider Diagnosis [facility] [place] [address] [facility] [phone] [place] [address] Nov, Brandi Singh IMMUNIZATIONS Vaccine Route Administration Date [...] Education Language: Question Answer Notes Languages spoken: [place] Sexual Hx: Question Answer Notes Had sex [...] Information RESULTS No Results REASON FOR VISIT three medications MEDICAL (GENERAL) HISTORY Type Description Date Medical [...] Details Provider Name:Destiny Gómez, 2021-02-07 03:15:00 PM, [address] [place] [address], , [place], [address], Insurance Providers Payer Name Payer Address Payer Phone Insured Name Patient Relati onship to Insured Coverage Start Date Coverage End Date BCBS JOANNA BRUCE PPO [phone] [facility] [employer] CLARISSA BECKETT [facility] [id number] ROSIE RODRIGUEZ self
--- OUTSIDE RECORDS SUMMARY | 2021-01-31 12:04 | CCD ---
Author Author [facility] Organization [facility] Address Unknown Phone Unavailable Care Team Providers Care Doll Eye Setter Name Role Phone Henny Maldonado Unavailable PROBLEMS Type Condition ICD9-CM Code [id number] Code Onset Dates Condition S tatus W/U Status Risk SNOMED Code Notes Problem Obesity, unspecified obesity severity, unspecified obe sity type E66.9 Active confirmed 100650693 Problem Sarcoidosis D86.9 Active confirmed 74120875 Problem Other obesity due to excess calories E66.09 Act gm confirmed 61630834606009 Problem Erectile dysfunction, unspecified erectile dysfunction typ e N52.9 Active confirmed 810124185 Problem DDD (degenerative disc disease), lumbar M51.36 Active confirmed 84762559 Problem Morbid (severe) obesity due to excess calories E66 .01 Active confirmed 59367341006396 Problem Colon cancer screening Z12.11 Active confirmed 898040224 Problem Seborrheic keratosis L82.1 Active confirmed 928547435 Problem Other male erectile dysfunction N52.8 Active confi rmed 671045372 Problem Hypogonadism in male E29.1 Active confirmed 79372358 Problem Enlarged prostate with lower urinary tract symptoms N40.1 Active confirmed 93463648588899 Problem Prostate cancer screening Z12.5 Active confirmed 391768227 Problem Body mass index (BMI) of 40.0-44.9 in adult Z68.41 Active confirmed 884263001 Problem Encounter for immunization Z23 Active confirmed 131198002 Problem Lipid screening Z13.220 Active confirmed 305 431141 ALLERGIES Allergen (clinical drug ingredient) Drug/Non Drug Allergy do cumented on EMR Reaction Allergy Type Onset Date Status Seasonal allergies Unknown Non Drug Allergy Active ENCOUNTERS from 1969 to 2020-12-13 Encounter Location Date Provider Diagnosis [facility] [address] [facility] [phone] [place] [address] Dec, Henny Maldonado IMMUNIZATIONS Vaccine Route Administration Date Status Influenza [...] Education Language: Question Answer Notes Languages spoken: Serbian Sexual Hx: Question Answer Notes Had sex [...] Information RESULTS No Results REASON FOR VISIT Test results MEDICAL (GENERAL) HISTORY Type Description Date Medical [...] Details Provider Name:Destiny Gómez, 2021-02-07 03:15:00 PM, [address] [place] [address], , [place], [address], Insurance Providers Payer Name Payer Address Payer Phone Insured Name Patient Relati onship to Insured Coverage Start Date Coverage End Date BCBS JOANNA BRUCE PPO [id number] [facility] [employer] [place] [facility] [id number] ROSIE RODRIGUEZ self
--- OUTSIDE RECORDS SUMMARY | 2021-01-31 12:04 | CCD ---
Author Author [facility] Organization [facility] Address Unknown Phone Unavailable Care Team Providers Care Registered Dietician Name Role Phone Brandi Singh Unavailable PROBLEMS Type Condition ICD9-CM Code [id number] Code Onset Dates Condition S tatus W/U Status Risk SNOMED Code Notes Problem Obesity, unspecified obesity severity, unspecified obe sity type E66.9 Active confirmed 626021243 Problem Sarcoidosis D86.9 Active confirmed 92140009 Problem Other obesity due to excess calories E66.09 Act gm confirmed 38080791940809 Problem Erectile dysfunction, unspecified erectile dysfunction typ e N52.9 Active confirmed 559682889 Problem DDD (degenerative disc disease), lumbar M51.36 Active confirmed 00286312 Problem Morbid (severe) obesity due to excess calories E66 .01 Active confirmed 56730257438016 Problem Colon cancer screening Z12.11 Active confirmed 590033338 Problem Seborrheic keratosis L82.1 Active confirmed 391847464 Problem Other male erectile dysfunction N52.8 Active confi rmed 989858177 Problem Hypogonadism in male E29.1 Active confirmed 30007752 Problem Enlarged prostate with lower urinary tract symptoms N40.1 Active confirmed 87598637814575 Problem Prostate cancer screening Z12.5 Active confirmed 872939642 Problem Body mass index (BMI) of 40.0-44.9 in adult Z68.41 Active confirmed 540795504 Problem Encounter for immunization Z23 Active confirmed 821482987 Problem Lipid screening Z13.220 Active confirmed 305 778900 ALLERGIES Allergen (clinical drug ingredient) Drug/Non Drug Allergy do cumented on EMR Reaction Allergy Type Onset Date Status Seasonal allergies Unknown Non Drug Allergy Active ENCOUNTERS from 1969 to 2020-12-11 Encounter Location Date Provider Diagnosis [facility] [address] [facility] [phone] [place] [address] Nov, Brandi Singh DDD (degenerative disc disea se), lumbar M51.36 IMMUNIZATIONS Vaccine Route Administration Date Status Influenza [...] Education Language: Question Answer Notes Languages spoken: Maori Sexual Hx: Question Answer Notes Had sex [...] Information RESULTS No Results REASON FOR VISIT back pain, left shoulder and elbow MEDICAL (GENERAL) HISTORY Type Description Date Medical [...] Treatment Notes Treatm ent Clinical Notes Nov, DDD (degenerative disc disease), lumbar (ICD-10 - M51.36) PLAN OF TREATMENT Medication Medication Name Sig Start Date Stop Date Gabapentin 100 MG 1 capsule Orally Three times a day for 30 day( s) tiZANidine HCl 2 MG 1 tablet as needed Orally Three times a day for 30 day(s) Next Appt Details Provider Name:Destiny Suarez Rico, 2021-02-07 03:15:00 PM, [address] [place] [address], , [place], [address], Insurance Providers Payer Name Payer Address Payer Phone Insured Name Patient Relati onship to Insured Coverage Start Date Coverage End Date BCBS JOANNA BRUCE PPO [phone] [facility] [place] [id number] ROSIE RODRIGUEZ self
--- OUTSIDE RECORDS SUMMARY | 2021-01-31 12:05 | CCD ---
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 AM EST eCW1 ([facility])
--- NOTE | 2021-01-31 12:37 | REP ---
INDICATION: CHEST PAIN. COMPARISON: 07/19/2011. TECHNIQUE: Single portable AP view of the chest was performed. FINDINGS: There is no acute infiltrate or pulmonary edema. Lungs are clear. The heart is mildly enlarged. The mediastinal silhouette is unremarkable. The visualized osseous structures are intact. IMPRESSION: No acute pulmonary disease.Mild cardiomegaly. <Electronically signed by Nikolay Houser > 01/31/21 [id number]
[2021-01-31 12:52] LABS: BASO % 0.7 % (0.0-1.0); EOS # 0.2 10^3/uL (0.0-0.5); EOS % 4.4 % (0.0-3.0); HEMATOCRIT 46.4 % (42.0-52.0); HEMOGLOBIN 14.8 g/dl (13.5-17.5); LYMPH # 1.1 10^3/uL (1.5-5.0); LYMPH % 25.5 % (24.0-44.0); MEAN CORPUSCULAR HEMOGLOBIN 28.1 pg (27.0-33.0); MEAN CORPUSCULAR HGB CONC 31.9 g/dl (32.0-36.5); MONO # 0.4 10^3/uL (0.0-0.8); MONO % 9.1 % (2.0-8.0); NEUTROPHILS # 2.6 10^3/uL (1.5-8.5); NEUTROPHILS % 59.8 % (36.0-66.0); PLATELET COUNT, AUTOMATED 168 10^3/uL (150-450); RED BLOOD COUNT 5.27 10^6/uL (4.30-6.10); WHITE BLOOD COUNT 4.3 10^3/uL (4.0-10.0)
[2021-01-31 13:02] LABS: INR 0.95; PROTHROMBIN TIME 13.1 SECONDS (12.7-14.5)
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
[2021-01-31 13:20] LABS: ALT/SGPT 31 U/L (12-78); BLOOD UREA NITROGEN 12 MG/DL (7-18); CALCIUM LEVEL 8.9 MG/DL (8.5-10.1); CARBON DIOXIDE LEVEL 31 MEQ/L (21-32); CHLORIDE LEVEL 109 MEQ/L (98-107); CK-MB VALUE MASS 1.7 NG/ML (<3.6); CPK CREATINE PHOSPHOKINASE 140 U/L (39-308); CREATININE FOR GFR 1.05 MG/DL (0.70-1.30); GLOMERULAR FILTRATION RATE > 60.0 (>56); GLUCOSE, FASTING 90 MG/DL (70-100); MB/CK RELATIVE INDEX 1.21 (< OR =4); POTASSIUM SERUM 4.2 MEQ/L (3.5-5.1); SODIUM LEVEL 142 MEQ/L (136-145)
[2021-01-31 13:21] LABS: ALBUMIN 3.3 GM/DL (3.2-5.2); BILIRUBIN,DIRECT 0.3 MG/DL (0.0-0.2); BILIRUBIN,TOTAL 1.3 MG/DL (0.2-1.0); FREE T4 1.22 NG/DL (0.76-1.46); LIPASE 102 U/L (73-393); MAGNESIUM LEVEL 1.9 MG/DL (1.8-2.4); THYROID STIMULATING HORMONE 0.512 uIU/ML (0.358-3.740); TOTAL PROTEIN 6.2 GM/DL (6.4-8.2); TROPONIN I < 0.02 NG/ML (< 0.10)
--- NOTE | 2021-01-31 13:43 | ECGEPIP ---
[facility] - ED Test Date: 2021-01-31 Pat Name: ROSIE CRAMER Department: Room: - Gender: Male [employer]: JAdrianna : 1970 Requested By: Owen Jose Order Number: [id number] Reading MD: Lucila Li Measurements Intervals [place] Rate: 60 P: 25 PA: 138 QRS: 35 QRSD: 108 T: 22 QT: 390 QTc: 390 Interpretive Statements Normal sinus rhythm decreased rate 05/26/15 Electronically Signed on 01-31-2021 13:43:10 EDT by Lucila Li
[2021-01-31] MEDS ORDERED: ISOVUE-370 76% 100ML VIAL As Ordered ONE (13:57)
--- NOTE | 2021-01-31 14:42 | REP ---
INDICATION: chest pain. COMPARISON: 01/25/2009. TECHNIQUE: CT angiogram chest performed following the intravenous administration of 100 cc of Isovue 370. Sagittal and coronal reconstruction images are performed. FINDINGS: Lungs: There is fibrotic scarring in the left upper and lower lobes as seen on prior study. There is no acute infiltrate. Calcified granuloma is seen in the left lower lobe medially. Mediastinum: No adenopathy. Pulmonary arteries: No evidence of pulmonary embolism. Darlene: No adenopathy. Axilla: No adenopathy. Pleura: No effusion. Heart: Heart is upper limits of normal in size. Thoracic aorta: No aneurysm or dissection. 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 Upper abdominal structures: Prior cholecystectomy. Visualized osseous structures: There are mild degenerative changes of the spine. IMPRESSION: No CT evidence of pulmonary embolism. No infiltrate seen. <Electronically signed by Nikolay Houser > 01/31/21 0045
[2021-01-31 18:15] VITALS: BP 162/79
--- NOTE | 2021-02-01 18:57 | ECGEPIP ---
[facility] - ED Test Date: 2021-01-31 Pat Name: ROSIE CRAMER Department: Room: - Gender: Male [employer]: ANTONETTE : 1970 Requested By: Owen Jose Order Number: [id number] Reading MD: Lucila Li Measurements Intervals [place] Rate: 58 P: 25 DE: 136 QRS: 29 QRSD: 102 T: 15 QT: 400 QTc: 392 Interpretive Statements Sinus bradycardia similar 01/31/21 Electronically Signed on 02-01-2021 18:57:18 EDT by Lucila Li
== END 2021-01-31 18:22 | disposition home or self-care (01) ==
LOC: M ED 11:59
DX: R07.9 Chest pain, unspecified (principal); R00.2 Palpitations; I51.7 Cardiomegaly; Z87.891 Personal history of nicotine dependence
CPT/HCPCS: 36415; 71045; 71275; 80048; 80076; 82550; 82553; 83690; 83735; 84439; 84443; 84484; 85025; 85610; 93005; 93041; 94760; 99285; Q9967

== ENCOUNTER → 2021-02-10 | Outpatient (CLI) | payer BC ==
[2021-02-10 11:28] LABS: BASO % 0.7 % (0.0-1.0); EOS # 0.2 10^3/uL (0.0-0.5); EOS % 4.3 % (0.0-3.0); HEMATOCRIT 46.5 % (42.0-52.0); HEMOGLOBIN 14.7 g/dl (13.5-17.5); LYMPH # 1.1 10^3/uL (1.5-5.0); LYMPH % 26.1 % (24.0-44.0); MEAN CORPUSCULAR HGB CONC 31.6 g/dl (32.0-36.5); MEAN CORPUSCULAR VOLUME 88.6 fl (80.0-96.0); MONO # 0.4 10^3/uL (0.0-0.8); MONO % 8.3 % (2.0-8.0); NEUTROPHILS # 2.6 10^3/uL (1.5-8.5); NEUTROPHILS % 60.4 % (36.0-66.0); PLATELET COUNT, AUTOMATED 186 10^3/uL (150-450); RED BLOOD COUNT 5.25 10^6/uL (4.30-6.10); WHITE BLOOD COUNT 4.2 10^3/uL (4.0-10.0)
[2021-02-10 11:42] LABS: ALBUMIN 3.5 GM/DL (3.2-5.2); ALT/SGPT 38 U/L (12-78); BILIRUBIN,TOTAL 1.5 MG/DL (0.2-1.0); BLOOD UREA NITROGEN 11 MG/DL (7-18); CALCIUM LEVEL 8.7 MG/DL (8.5-10.1); CARBON DIOXIDE LEVEL 31 MEQ/L (21-32); CHLORIDE LEVEL 107 MEQ/L (98-107); CREATININE FOR GFR 1.08 MG/DL (0.70-1.30); FREE T4 1.33 NG/DL (0.76-1.46); GLOMERULAR FILTRATION RATE > 60.0 (>56); GLUCOSE, FASTING 90 MG/DL (70-100); POTASSIUM SERUM 4.6 MEQ/L (3.5-5.1); SODIUM LEVEL 142 MEQ/L (136-145); TOTAL PROTEIN 6.5 GM/DL (6.4-8.2)
[2021-02-10 11:51] LABS: HEMOGLOBIN A1c 5.2 %
== END ==
LOC: M LAB 10:37
PROVIDERS: ATTEND Physician Assistant Medical
DX: N40.1 Benign prostatic hyperplasia with lower urinary tract symptoms (principal)
CPT/HCPCS: 36415; 80053; 83036; 84402; 84403; 84439; 84443; 85025; G0103

== ENCOUNTER 2022-01-29 00:20 | Emergency (ER) | payer BC, OTHER ==
[~2022-01-29] VITALS: Ht 180.3 cm; Wt 136.4 kg
[2022-01-29 03:37] VITALS: BP 130/78
== END 2022-01-29 03:39 | disposition home or self-care (01) ==
LOC: M ED 00:20
DX: S13.4XXA Sprain of ligaments of cervical spine, initial encounter (principal); V49.50XA Passenger injured in collision with unspecified motor vehicles in traffic accident, initial encounter; Y92.410 Unspecified street and highway as the place of occurrence of the external cause; Y93.9 Activity, unspecified; Y99.9 Unspecified external cause status

== ENCOUNTER 2022-02-07 15:23 | Emergency (ER) | payer BC, OTHER ==
[~2022-02-07] VITALS: Ht 180.3 cm; Wt 139.6 kg
[2022-02-07] MEDS ORDERED: KETOROLAC 60MG 2ML VIAL IM ONE (20:00)
[2022-02-07] MEDS ORDERED: GABAPENTIN 300 MG CAP PO ONE (20:00)
[2022-02-07] MEDS ORDERED: NEUR100C PO (20:03)
[2022-02-07 20:16] VITALS: BP 140/91
== END 2022-02-07 20:37 | disposition home or self-care (01) ==
LOC: M ED 15:23
DX: M54.50 Low back pain, unspecified (principal); D86.9 Sarcoidosis, unspecified; Z87.891 Personal history of nicotine dependence; Z79.899 Other long term (current) drug therapy
CPT/HCPCS: 96372; 99283; J1885

== ENCOUNTER 2022-07-16 16:02 | Emergency (ER) | payer BC ==
[~2022-07-16] VITALS: Ht 180.3 cm; Wt 137.9 kg
[~2022-07-16 16:02] MED LIST: NEUR100C PO
[2022-07-16 17:29] LABS: BASO % 0.6 % (0.0-1.0); EOS # 0.2 10^3/uL (0.0-0.5); EOS % 3.2 % (0.0-3.0); HEMOGLOBIN 14.7 g/dl (13.5-17.5); LIPASE 34 U/L (12-53); LYMPH % 20.2 % (24.0-44.0); MEAN CORPUSCULAR HEMOGLOBIN 27.7 pg (27.0-33.0); MEAN CORPUSCULAR HGB CONC 31.3 g/dl (32.0-36.5); MEAN CORPUSCULAR VOLUME 88.7 fl (80.0-96.0); MONO # 0.5 10^3/uL (0.0-0.8); MONO % 9.1 % (2.0-8.0); NEUTROPHILS # 3.3 10^3/uL (1.5-8.5); NEUTROPHILS % 66.7 % (36.0-66.0); PLATELET COUNT, AUTOMATED 174 10^3/uL (150-450)
[2022-07-16 17:32] LABS: CPK CREATINE PHOSPHOKINASE 82 U/L (46-171)
[2022-07-16 17:35] LABS: ALBUMIN 3.4 G/DL (3.2-5.2); ALKALINE PHOSPHATASE 78 U/L (46-116); ALT/SGPT 38 U/L (7.0-40); AST/SGOT 26 U/L (<34); BILIRUBIN,DIRECT 0.5 MG/DL (<0.4); BILIRUBIN,TOTAL 1.5 MG/DL (0.3-1.2); BLOOD UREA NITROGEN 14 MG/DL (9-23); CALCIUM LEVEL 7.7 MG/DL (8.5-10.1); CARBON DIOXIDE LEVEL 29 MMOL/L (20-31); CHLORIDE LEVEL 110 MMOL/L (98-107); CK-MB VALUE MASS < 1.0 NG/ML (<3.6); CREATININE FOR GFR 0.91 MG/DL (0.70-1.30); GLOMERULAR FILTRATION RATE > 60.0 (>56); GLUCOSE, FASTING 90 MG/DL (60-100); MB/CK RELATIVE INDEX 1.21 (< OR =4); POTASSIUM SERUM 4.2 MMOL/L (3.5-5.1); SODIUM LEVEL 141 MMOL/L (136-145); TOTAL PROTEIN 5.8 G/DL (5.7-8.2)
[2022-07-16 17:45] LABS: INR 0.99; PROTHROMBIN TIME 13.3 SECONDS (12.5-14.5)
[2022-07-16 17:53] LABS: RSV AMPLIFICATION NEGATIVE (NEGATIVE)
[2022-07-16] MEDS ORDERED: GI COCKTAIL 50ML BTL(HYOSCYAMINE/MAALOX/LIDOCAINE VISCOUS)(1:3:1) PO ONE (19:05)
[2022-07-16] MEDS ORDERED: ISOVUE-370 76% 100ML VIAL As Ordered ONE (19:13)
[2022-07-16 21:15] VITALS: BP 137/78
== END 2022-07-16 21:38 | disposition home or self-care (01) ==
LOC: M ED 16:02
DX: R07.9 Chest pain, unspecified (principal); I10 Essential (primary) hypertension; Z86.79 Personal history of other diseases of the circulatory system; Z87.891 Personal history of nicotine dependence; Z79.891 Long term (current) use of opiate analgesic
CPT/HCPCS: 71045; 71275; 80048; 80076; 82550; 82553; 83690; 84484; 85025; 85610; 87631; 93005; 93041; 94760; 99285; Q9967

== ENCOUNTER 2022-10-12 12:04 | Emergency (ER) | payer BC ==
[~2022-10-12] VITALS: Ht 180.3 cm; Wt 135.0 kg
[2022-10-12 13:24] LABS: BASO % 0.9 % (0.0-1.0); EOS # 0.1 10^3/uL (0.0-0.5); HEMATOCRIT 43.1 % (42.0-52.0); HEMOGLOBIN 13.6 g/dl (13.5-17.5); LYMPH # 0.9 10^3/uL (1.5-5.0); LYMPH % 19.7 % (24.0-44.0); MEAN CORPUSCULAR HEMOGLOBIN 27.6 pg (27.0-33.0); MEAN CORPUSCULAR HGB CONC 31.6 g/dl (32.0-36.5); MEAN CORPUSCULAR VOLUME 87.6 fl (80.0-96.0); MONO # 0.4 10^3/uL (0.0-0.8); MONO % 8.2 % (2.0-8.0); NEUTROPHILS # 3.2 10^3/uL (1.5-8.5); PLATELET COUNT, AUTOMATED 157 10^3/uL (150-450); RED BLOOD COUNT 4.92 10^6/uL (4.30-6.10); WHITE BLOOD COUNT 4.7 10^3/uL (4.0-10.0)
[2022-10-12 13:39] LABS: ERYTHROCYTE SEDIMENTATION RATE 10 mm/hr (0-20)
[2022-10-12 13:41] LABS: URIC ACID 6.5 MG/DL (3.7-9.2)
[2022-10-12 13:43] LABS: C REACTIVE PROTEIN QUANTITATIV 0.6 MG/DL (<1.0)
[2022-10-12] MEDS ORDERED: predniSONE 20 MG TAB PO ONE (14:40)
[2022-10-12] MEDS ORDERED: ANEC4CRE3 TOP (14:45)
[2022-10-12] MEDS ORDERED: PRED20TA PO (14:45)
[2022-10-12 14:54] VITALS: BP 133/81; TEMP 97.5; O2SAT 96
== END 2022-10-12 15:02 | disposition home or self-care (01) ==
LOC: M ED 12:04
DX: M79.671 Pain in right foot (principal); Z79.891 Long term (current) use of opiate analgesic; Z79.52 Long term (current) use of systemic steroids; Z79.899 Other long term (current) drug therapy
CPT/HCPCS: 36415; 73650; 80047; 84550; 85025; 85652; 86140; 99283; J7512

== ENCOUNTER 2022-11-07 09:09 | Emergency (ER) | payer BC, SELFPAY ==
[~2022-11-07] VITALS: Ht 182.9 cm; Wt 133.2 kg
[~2022-11-07 09:09] MED LIST changes: +ANEC4CRE3 TOP; +PRED20TA PO
[2022-11-07] MEDS ORDERED: NS 500 ML IV ONE (09:15)
[2022-11-07] MEDS ORDERED: ISOVUE-370 76% 100ML VIAL As Ordered ONE (09:29)
[2022-11-07] MEDS ORDERED: ACETAMINOPHEN TAB 650MG DOSE (2X325MG) PO ONE (09:50)
[2022-11-07 10:13] LABS: BASO % 0.7 % (0.0-1.0); EOS # 0.2 10^3/uL (0.0-0.5); HEMATOCRIT 49.1 % (42.0-52.0); HEMOGLOBIN 15.1 g/dl (13.5-17.5); LYMPH % 21.3 % (24.0-44.0); MEAN CORPUSCULAR HEMOGLOBIN 27.5 pg (27.0-33.0); MEAN CORPUSCULAR HGB CONC 30.8 g/dl (32.0-36.5); MEAN CORPUSCULAR VOLUME 89.4 fl (80.0-96.0); MONO # 0.4 10^3/uL (0.0-0.8); MONO % 9.7 % (2.0-8.0); NEUTROPHILS # 2.8 10^3/uL (1.5-8.5); NEUTROPHILS % 63.9 % (36.0-66.0); PLATELET COUNT, AUTOMATED 175 10^3/uL (150-450); RED BLOOD COUNT 5.49 10^6/uL (4.30-6.10); WHITE BLOOD COUNT 4.5 10^3/uL (4.0-10.0)
[2022-11-07 10:30] LABS: INR 0.96
[2022-11-07 10:31] LABS: BLOOD UREA NITROGEN 15 MG/DL (9-23); CALCIUM LEVEL 8.3 MG/DL (8.5-10.1); CARBON DIOXIDE LEVEL 29 MMOL/L (20-31); CHLORIDE LEVEL 105 MMOL/L (98-107); CK-MB VALUE MASS < 1.0 NG/ML (<3.6); CPK CREATINE PHOSPHOKINASE 82 U/L (46-171); CREATININE FOR GFR 0.86 MG/DL (0.70-1.30); GLOMERULAR FILTRATION RATE > 60.0 (>56); GLUCOSE, FASTING 87 MG/DL (60-100); MB/CK RELATIVE INDEX 1.21 (< OR =4); PARTIAL THROMBOPLASTIN TIME 28.1 SECONDS (24.8-34.2); SODIUM LEVEL 140 MMOL/L (136-145)
[2022-11-07 10:36] LABS: RSV AMPLIFICATION NEGATIVE (NEGATIVE)
[2022-11-07 11:39] LABS: CK-MB VALUE MASS < 1.0 NG/ML (<3.6)
[2022-11-07 11:40] LABS: CPK CREATINE PHOSPHOKINASE 84 U/L (46-171); MB/CK RELATIVE INDEX 1.19 (< OR =4)
[2022-11-07 14:10] VITALS: BP 132/82; TEMP 98.9; O2SAT 97
== END 2022-11-07 14:14 | disposition home or self-care (01) ==
LOC: M ED 09:09
DX: R55 Syncope and collapse (principal); R42 Dizziness and giddiness; G40.909 Epilepsy, unspecified, not intractable, without status epilepticus; I44.4 Left anterior fascicular block; I10 Essential (primary) hypertension; M54.50 Low back pain, unspecified; Z79.52 Long term (current) use of systemic steroids; Z79.899 Other long term (current) drug therapy
CPT/HCPCS: 36415; 70450; 70496; 70498; 70551; 71045; 80047; 80048; 82550; 82553; 84484; 85025; 85610; 85730; 86850; 86900; 86901; 87631; 93005; 93041; 94760; 99285; Q9967

== ENCOUNTER → 2022-12-03 | Outpatient (REF) | LOC: M EMP 12:48 | PROVIDERS: ATTEND Family Medicine | DX: Z11.52 Encounter for screening for COVID-19 (principal) ==

== ENCOUNTER 2022-12-15 03:44 | Emergency (ER) | payer BC, SELFPAY ==
[~2022-12-15] VITALS: Ht 182.9 cm; Wt 131.6 kg
[2022-12-15 08:17] VITALS: BP 148/83; TEMP 97.3; O2SAT 97
== END 2022-12-15 09:43 | disposition home or self-care (01) ==
LOC: M ED 03:44
DX: S63.502A Unspecified sprain of left wrist, initial encounter (principal); I10 Essential (primary) hypertension; M54.50 Low back pain, unspecified; W01.0XXA Fall on same level from slipping, tripping and stumbling without subsequent striking against object, initial encounter; Y99.0 Civilian activity done for income or pay; Z79.891 Long term (current) use of opiate analgesic